=== PATIENT | female | born 1960 | race Caucasian/White ===

== ENCOUNTER 2016-10-26 12:08 | Outpatient (CLI) | payer OTHER, SELFPAY ==
--- NOTE | 2016-10-26 15:37 | RAD ---
RIGHT HAND TWO VIEWS: History: Disability evaluation. FINDINGS: Minimal arthritic changes of the distal interphalangeal joints are seen. Changes are slightly more p ronounced at the level of index and little fingers as well as interphalangeal joint of the thumb. Al so mild changes of the first metacarpal phalangeal joint and first carpal metacarpal joint space. IMPRESSION: Mild osteoarthritic changes of the hand. POS: [facility]
--- NOTE | 2016-10-26 15:42 | RAD ---
LEFT SHOULDER 2 VIEWS: HISTORY: Disability evaluation. COMPARISON: 10/16/14 study. There is deformity to the left humeral neck related to an old humeral neck fracture. The bones are demineralized. AC joint is fairly unremarkable. IMPRESSION: Old left humeral neck fracture. POS: [facility]
--- NOTE | 2016-10-26 15:42 | RAD ---
RIGHT HIP THREE VIEWS: History: Disability evaluation. Comparison: 01-18-16 FINDINGS: A gamma nail and short stem intramedullary isac stabilize old intertrochanteric fracture. Joint space shows some minimal arthritic change without significant joint space narrowing. IMPRESSION: Post-operative changes of the hip. POS: [facility]
== END 2016-10-26 12:09 | disposition home or self-care (01) ==
LOC: NAV RAD 12:08
PROVIDERS: ATTEND Family Medicine
DX: M16.11 Unilateral primary osteoarthritis, right hip (principal); M19.042 Primary osteoarthritis, left hand; M19.041 Primary osteoarthritis, right hand; Z96.641 Presence of right artificial hip joint

== ENCOUNTER 2017-03-20 12:27 | Emergency (ER) | payer OTHER ==
[2017-03-20] MEDS ORDERED: Lorazepam 2 MG/ML VIAL ONE (12:58)
[2017-03-20] MEDS ORDERED: traMADol HCl 50 MG TAB ONE (13:04)
== END 2017-03-20 13:16 | disposition home or self-care (01) ==
LOC: NAV ERS 12:27
DX: F41.9 Anxiety disorder, unspecified (principal); F32.9 Major depressive disorder, single episode, unspecified; F17.210 Nicotine dependence, cigarettes, uncomplicated; I10 Essential (primary) hypertension
CPT/HCPCS: 96372; J2060